=== PATIENT | male | born 1995 | race Caucasian/White ===

== ENCOUNTER 2020-02-01 03:43 | Emergency (ER) | payer MEDICAID ==
[~2020-02-01] VITALS: Ht 188 cm; Wt 79.0 kg
[2020-02-01 03:49] VITALS: BP 157/81
[2020-02-01] MEDS ORDERED: ERYT-111 PO (04:12)
[2020-02-01] MEDS ORDERED: IBUP-1984 PO (04:13)
== END 2020-02-01 04:23 | disposition home or self-care (01) ==
LOC: ER 03:44
DX: K08.89 Other specified disorders of teeth and supporting structures (principal); R59.9 Enlarged lymph nodes, unspecified; F17.200 Nicotine dependence, unspecified, uncomplicated; F12.90 Cannabis use, unspecified, uncomplicated; Z90.49 Acquired absence of other specified parts of digestive tract; Z72.89 Other problems related to lifestyle; Z88.1 Allergy status to other antibiotic agents; Z88.0 Allergy status to penicillin; Z79.899 Other long term (current) drug therapy
CPT/HCPCS: 99283

== ENCOUNTER 2021-05-31 16:37 | Emergency (ER) | payer MEDICAID ==
[~2021-05-31] VITALS: Ht 185.4 cm; Wt 79.5 kg
[2021-05-31 16:52] VITALS: BP 143/85
[2021-05-31] MEDS ORDERED: IBUP-1985 PO (17:51)
== END 2021-05-31 18:03 | disposition home or self-care (01) ==
LOC: ER 16:37
DX: M25.561 Pain in right knee (principal); R22.41 Localized swelling, mass and lump, right lower limb; F12.90 Cannabis use, unspecified, uncomplicated; Z72.89 Other problems related to lifestyle; Z90.49 Acquired absence of other specified parts of digestive tract; Z88.1 Allergy status to other antibiotic agents; Z88.2 Allergy status to sulfonamides
CPT/HCPCS: 99282